=== PATIENT | male | born 1950 | race Caucasian/White ===

== ENCOUNTER 2020-09-29 17:23 | Emergency (ER) | payer MEDICARE, BC ==
[~2020-09-29] VITALS: Ht 182.9 cm; Wt 126.4 kg
[2020-09-29 17:24] VITALS: BP 127/59
--- NOTE | 2020-09-29 17:58 | PHYS DOC ---
Adult General Chief Complaint Chief Complaint: LACERATION/AVULSION HPI HPI Patient is a 70-year-old male patient presenting to the ED today with right medial ankle laceration that occurred today. Patient states he was cutting a tree and a tree branch cut his right ankle. Patient states he is on aspirin 81 mg daily. Review of Systems Review of Systems Constitutional: Denies fever or chills [] Musculoskeletal: Denies back pain or joint pain [] Integument: Reports right medial ankle laceration Neurologic: Denies headache, focal weakness or sensory changes [] All other systems were reviewed and found to be within normal limits, except as documented in this note. Physical Exam Physical Exam Constitutional: Well developed, well nourished, no acute distress, non-toxic appearance. [] Skin: Right medial ankle with a tiny laceration that appears superficial approximately 2 cm long. There is no bleeding. There is no obvious tendon involvement. Patient able to flex and extend the right foot and ankle with no difficulties. Full range of motion to the right toes. +2 right pedal pulse. Cap refill 2 seconds of right toes. Back: No tenderness, no CVA tenderness. [] Extremities: No tenderness, no cyanosis, no clubbing, ROM intact, no edema. [] Neurologic: Alert and oriented X 3, normal motor function, normal sensory function, no focal deficits noted. [] Psychologic: Affect normal, judgement normal, mood normal. [] EKG EKG [] Radiology/Procedures Radiology/Procedures [] Heart Score C/O Chest Pain: N/A Risk Factors: Risk Factors: DM, Current or recent (<one month) smoker, HTN, HLP, family history of CAD, obesity. Risk Scores: Risk Factors: DM, Current or recent (<one month) smoker, HTN, HLP, family history of CAD, obesity. Course & Med Decision Making Course & Med Decision Making Pertinent Labs and Imaging studies reviewed. (See chart for details) This is a 70-year-old male patient presenting to the ED today with a laceration on the right ankle that appears superficial. There is no tendon involvement. There is no bleeding. Dermabond was used around the laceration. Patient discharged home. Tetanus updated. Sarah Disclaimer [place] Disclaimer This electronic medical record was generated, in whole or in part, using a voice recognition dictation system. Departure Departure: Impression: Primary Impression: Laceration of right ankle Disposition: HOME / SELF CARE / HOMELESS Condition: STABLE Referrals: PCP,UNKNOWN (PCP) Patient Instructions: Laceration Care, Adult Additional Instructions: You have a laceration on the right medial ankle. Keep the area clean and dry. Leave the dressing on for 24 hours. Move the dressing is not bleeding or draining in 24 hours. Apply Neosporin to the area twice a day. You can wash the area once a day with regular soap and water. Monitor the area for any signs of infection including but not limited to increased redness, warmth, yellow drainage from the area and return to the ED today with procedure on Dr. Problem Qualifiers Primary Impression: Laceration of right ankle Encounter type: initial encounter Qualified Codes: S91.011A - Laceration without foreign body, right ankle, initial encounter NOEMI ALVAREZ COOK [place]ISE September 29, 2020 17:58
[2020-09-29] MEDS ORDERED: DIPH,PERTUSS(ACELL),TET VAC/PF 0.5 ML SYRINGE. VAX IM ONE (18:15)
== END 2020-09-29 18:08 | disposition home or self-care (01) ==
LOC: ER 17:23
DX: S91.011A Laceration without foreign body, right ankle, initial encounter (principal); Z79.82 Long term (current) use of aspirin; W26.8XXA Contact with other sharp object(s), not elsewhere classified, initial encounter; Y93.89 Activity, other specified; Y92.89 Other specified places as the place of occurrence of the external cause; Y99.8 Other external cause status
CPT/HCPCS: 12001; 90471; 90715; 99283